=== PATIENT | female | born 1960 | race American Indian/Alaskan Native ===

== ENCOUNTER 2017-02-12 10:32 | Outpatient (CLI) | payer MEDICARE ==
--- NOTE | 2017-02-12 11:29 | XRay Report ---
ROUTINE CHEST, TWO VIEWS: HISTORY: Acute upper respiratory infection. The trachea, heart, mediastinal contour, lung millre and bony thorax are unremarkable. IMPRESSION: Unremarkable chest x-ray.
[2017-02-12 11:41] LABS: Eosinophils % (Auto) 2.2 % (0.0-4.3); Hematocrit 40.5 % (30.3-42.9); Hemoglobin 13.5 gm/dl (10.1-14.3); Mean Corpuscular HGB Conc 33 % (30-34); Mean Corpuscular Hemoglobin 31 pg (28-32); Mean Corpuscular Volume 93 fl (79-97); Red Blood Count 4.35 M/mm3 (3.65-5.03); Red Cell Distribution Width 14.5 % (13.2-15.2); White Blood Count 9.4 K/mm3 (4.5-11.0)
[2017-02-12 11:55] LABS: Albumin 3.9 g/dL (3.9-5); Albumin/Globulin Ratio 0.9 %; Alkaline Phosphatase 80 units/L (35-129); Anion Gap 19 mmol/L; BUN/Creatinine Ratio 16; Blood Urea Nitrogen 14 mg/dL (7-17); Calcium 9.2 mg/dL (8.4-10.2); Carbon Dioxide 24 mmol/L (22-30); Chloride 99.8 mmol/L (98-107); Glucose 97 mg/dL (65-100); Potassium 4.8 mmol/L (3.6-5.0); Sodium 138 mmol/L (137-145); Total Protein 8.2 g/dL (6.3-8.2)
[2017-02-12 12:05] LABS: Bilirubin,Direct < 0.2 mg/dL (0-0.2); Bilirubin,Indirect 0.3 mg/dL
[2017-02-12 12:06] LABS: Alanine Aminotransferase 40 units/L (7-56)
[2017-02-12 12:24] LABS: Platelet Count 185 K/mm3 (140-440)
== END 2017-02-12 10:33 | disposition home or self-care (01) ==
LOC: XRAY 10:32
PROVIDERS: ATTEND Nurse Practitioner
DX: J06.9 Acute upper respiratory infection, unspecified (principal); B18.2 Chronic viral hepatitis C; R11.11 Vomiting without nausea; I11.0 Hypertensive heart disease with heart failure; I50.9 Heart failure, unspecified; M06.9 Rheumatoid arthritis, unspecified
CPT/HCPCS: 36415; 71020; 80053; 80074; 85025

== ENCOUNTER 2017-03-14 03:19 | Emergency (ER) | payer MEDICARE ==
[2017-03-14 05:51] LABS: Basophils # (Auto) 0.1 K/mm3 (0.0-0.1); Basophils % (Auto) 0.7 % (0.0-1.8); Eosinophils # (Auto) 0.2 K/mm3 (0.0-0.4); Eosinophils % (Auto) 2.4 % (0.0-4.3); Hemoglobin 12.5 gm/dl (10.1-14.3); Lymphocytes # (Auto) 2.5 K/mm3 (1.2-5.4); Lymphocytes % (Auto) 29.4 % (13.4-35.0); Mean Corpuscular HGB Conc 33 % (30-34); Mean Corpuscular Hemoglobin 31 pg (28-32); Mean Corpuscular Volume 93 fl (79-97); Monocytes # (Auto) 0.7 K/mm3 (0.0-0.8); Monocytes % (Auto) 8.2 % (0.0-7.3); Platelet Count 218 K/mm3 (140-440); Red Cell Distribution Width 14.5 % (13.2-15.2)
[2017-03-14 06:16] LABS: Alanine Aminotransferase 38 units/L (7-56); Albumin 4.2 g/dL (3.9-5); BUN/Creatinine Ratio 20; Blood Urea Nitrogen 16 mg/dL (7-17); Calcium 9.1 mg/dL (8.4-10.2); Hemolysis Index 6
[2017-03-14 07:19] VITALS: BP 124/79
--- NOTE | 2017-03-14 10:42 | Emergency Department Report ---
ED Extremity Problem HPI - General Chief complaint: Extremity Problem,Nontraumatic Stated complaint: RIGHT ARM PAIN Time Seen by Provider: 03/14/17 10:20 Source: patient Mode of arrival: Ambulatory Limitations: No Limitations - History of Present Illness Initial comments: Patient is a 56-year-old [place] female with no significant past medical history presenting with 1 week of right arm pain. Patient states that she is so much pain it is difficult to hold things in the arm feels weak and heavy pain initially started as a pins and needles sensation and now has a burning pain. Patient did see her primary care physician who started on gabapentin which has not relieved any of her symptoms. Patient denies any trauma swelling neck pain or any other neurological symptoms. She rates the pain as 10 out of 10 severity MD Complaint: extremity pain Location: right, upper extremity Radiation: none Quality: burning, stabbing, aching, sharp, constant Consistency: constant Improves with: nothing (patient states she is tried heat, ice, and massage with no relief) Worsens with: nothing Associated Symptoms: myalgias. denies: chest pain, shortness of breath, fever, arthralgias - Related Data Home Medications Medication Instructions Recorded Confirmed Last Taken Amlodipine Bes/Olmesartan Med 1 tab PO DAILY 05/12/15 08/30/16 06/27/15 [Chet 5-20 mg] Gabapentin [Neurontin] 900 mg PO QDAY 05/12/15 08/30/16 06/27/15 Previous Rx's Medication Instructions Recorded Last Taken Type HYDROcodone/APAP 5-325 [[place] 1 each PO Q4H PRN #30 tablet 09/03/16 Unknown Rx 5-325 mg TAB] oxyCODONE /ACETAMINOPHEN [Percocet 1 tab PO Q6HR PRN #10 tablet 03/14/17 Unknown Rx 5/325] Allergies Allergy/AdvReac Type Severity Reaction Status Date / Time glatiramer acetate Allergy Seizure Verified 06/10/13 17:29 [From Copaxone] Penicillins Allergy Rash Verified 01/01/13 17:34 meperidine HCl [From Demerol] AdvReac Rash Verified 01/06/13 09:37 prochlorperazine edisylate AdvReac Unknown Verified 01/01/13 17:34 [From Compazine] ED Review of Systems ROS: Stated complaint: RIGHT ARM PAIN Other details as noted in HPI Comment: All other systems reviewed and negative ED Past Medical Hx - Past Medical History Previous Medical History?: Yes Hx Hypertension: Yes (2013) Hx CVA: Yes (TIA) Hx Heart Attack/AMI: Yes Hx Congestive Heart Failure: No Hx Diabetes: No Hx Liver Disease: Yes (Hep C) Hx Renal Disease: Yes Hx Sickle Cell Disease: Yes (TRAIT) Hx Headaches / Migraines: Yes (MIGRAINES) Hx Asthma: No Hx COPD: No Additional medical history: HCV. Colon CA - Surgical History Past Surgical History?: Yes Hx Cholecystectomy: Yes Hx Appendectomy: Yes Additional Surgical History: Right Nephrectomy, Hysterectomy - Social History Smoking Status: Never Smoker Substance Use Type: None - Medications Home Medications: Home Medications Medication Instructions Recorded Confirmed Last Taken Type Amlodipine Bes/Olmesartan Med 1 tab PO DAILY 05/12/15 08/30/16 06/27/15 History [Chet 5-20 mg] Gabapentin [Neurontin] 900 mg PO QDAY 05/12/15 08/30/16 06/27/15 History HYDROcodone/APAP 5-325 [[place] 1 each PO Q4H PRN #30 tablet 09/03/16 Unknown Rx 5-325 mg TAB] oxyCODONE /ACETAMINOPHEN [Percocet 1 tab PO Q6HR PRN #10 tablet 03/14/17 Unknown Rx 5/325] ED Physical Exam - General Limitations: No Limitations General appearance: alert, in no apparent distress - Head Head exam: Present: atraumatic, normocephalic - Eye Eye exam: Present: normal appearance - ENT ENT exam: Present: mucous membranes moist - Neck Neck exam: Present: normal inspection - Respiratory Respiratory exam: Present: normal lung sounds bilaterally. Absent: respiratory distress - Cardiovascular Cardiovascular Exam: Present: regular rate, normal rhythm. Absent: systolic murmur, diastolic murmur, rubs, gallop - GI/Abdominal GI/Abdominal exam: Present: soft, normal bowel sounds - Extremities Exam Extremities exam: Present: normal inspection - Back Exam Back exam: Present: normal inspection - Neurological Exam Neurological exam: Present: alert, oriented X3, CN II-XII intact, normal gait, motor sensory deficit (patient has 4 out of 5 formulation technician strength of the right hand there is no pronator drift) - Psychiatric Psychiatric exam: Present: normal affect, normal mood - Skin Skin exam: Present: warm, dry, intact, normal color. Absent: rash ED Course Vital Signs 03/14/17 03/14/17 03/14/17 04:52 07:15 07:19 Temperature 98.4 F 97.7 F Pulse Rate 79 70 Respiratory 18 Rate Blood Pressure 139/87 124/79 O2 Sat by Pulse 97 96 Oximetry 03/14/17 11:44 Temperature Pulse Rate Respiratory 18 Rate Blood Pressure O2 Sat by Pulse Oximetry ED Medical Decision Making - Lab Data Result diagrams: 03/14/17 05:35 03/14/17 05:35 - Medical Decision Making Patient is a 56-year-old female who is presenting with right upper extremity pain and formulation technician strength weakness. This event for the past week. Primary physician has referred her to neurology however she has come here for pain control. CT head does not support any stroke symptoms Critical care attestation.: If time is entered above; I have spent that time in minutes in the direct care of this critically ill patient, excluding procedure time. ED Disposition Clinical Impression: Pain syndrome, chronic Disposition: DC-01 TO HOME OR SELFCARE Is pt being admited?: No Does the pt Need Aspirin: No Condition: Stable Prescriptions: oxyCODONE /ACETAMINOPHEN [Percocet 5/325] 1 tab PO Q6HR PRN #10 tablet PRN Reason: Pain Referrals: SANDRA HOFF MD [Primary Care Provider] - 3-5 Days
[2017-03-14] MEDS ORDERED: NORCO 7.5/325 PO ONE (10:49)
[2017-03-14] MEDS ORDERED: MOTRIN PO ONE (10:49)
[2017-03-14] MEDS ORDERED: ZOFRAN ODT PO ONE (11:10)
[2017-03-14] MEDS ORDERED: PERCOCET 5/325 PO ONE (11:29)
--- NOTE | 2017-03-14 13:05 | Cat Scan Report ---
CT HEAD WITHOUT CONTRAST: HISTORY: Right upper extremity weakness. TECHNIQUE: Sequential 2.5mm CT images. COMPARISON: none. FINDINGS: Cerebral Parenchyma: Within normal limits. Cerebellum: Within normal limits. Brainstem: Within normal limits. Ventricles: Normal. Sella: Normal. Extra-axial spaces: Normal. Basal Cisterns: Normal. Intracranial Hemorrhage: None. Midline Shift: None. Calvarium: Normal. Sinuses: Normal. Mastoid Air Cells: Normal. Visualized Orbits: Normal. IMPRESSION: Cranial CT scan within normal limits.
== END 2017-03-14 13:48 | disposition home or self-care (01) ==
LOC: ED 03:19
DX: G89.4 Chronic pain syndrome (principal); M79.601 Pain in right arm; I10 Essential (primary) hypertension; I25.2 Old myocardial infarction; G43.909 Migraine, unspecified, not intractable, without status migrainosus
CPT/HCPCS: 36415; 70450; 80053; 85025; Q0162

== ENCOUNTER 2017-04-01 06:12 | Day surgery (SDC) | payer MEDICARE ==
[2017-04-01] MEDS ORDERED: NACL 0.9% 1000 ML 1,000 ML IV SCH (08:00)
--- NOTE | 2017-04-01 09:21 | Short Stay Summary ---
Short Stay Documentation Date of service: 04/01/17 Narrative H&P: 56 year old with attentuated polyposis syndrome, history colon cancer 2005, 25 polyps in 2015, 19 polyps in 2016 plus one large colon polyp and one small anal canal polyp which were not able to be excised colonoscopically and for which she was advised to have surgery, however she elected not to pursue surgery and became lost to follow up. She was recently hospitalized for GI bleeding. She presents today for colonoscopy. - History Principal diagnosis: personal hx colon cancer, personal hx colon polyps, recent bleeding H&P: obtained from office - Allergies and Medications Current Medications: Allergies glatiramer acetate [From Copaxone] Allergy (Verified 06/10/13 17:29) Seizure Penicillins Allergy (Verified 01/01/13 17:34) Rash meperidine HCl [From Demerol] Adverse Reaction (Verified 01/06/13 09:37) Rash prochlorperazine edisylate [From Compazine] Adverse Reaction (Verified 01/01/13 17:34) Unknown Home Medications Medication Instructions Recorded Confirmed Last Taken Type Amlodipine Bes/Olmesartan Med 1 tab PO DAILY 05/12/15 04/01/17 04/01/17 History [Chet 5-20 mg] Gabapentin [Neurontin] 900 mg PO QDAY 05/12/15 04/01/17 03/31/17 History HYDROcodone/APAP 5-325 [[place] 1 each PO Q4H PRN #30 tablet 09/03/16 04/01/17 Unknown Rx 5-325 mg TAB] oxyCODONE /ACETAMINOPHEN [Percocet 1 tab PO Q6HR PRN #10 tablet 03/14/17 Unknown Rx 5/325] Active Medications Sodium Chloride (Nacl 0.9% 1000 Ml) 1,000 mls @ 50 mls/hr IV DIRECT MARIANNE Last Admin: 04/01/17 08:21 Dose: 50 mls/hr - Physical exam General appearance: no acute distress HEENT: PERRLA, EOMI Lungs: Clear to auscultation Heart: Regular rate, Normal S1, Normal S2 Gastrointestinal: normal, obese - Hospital course Hospital course: Unsuccessful attempt to perform colonoscopy. Prep was inadequate. - Disposition Condition at discharge: Good Disposition: DC-01 TO HOME OR SELFCARE - Discharge Diagnoses (1) Personal history of colonic polyps Status: Chronic (2) Personal history of colon cancer Status: Chronic (3) History of GI bleed Status: Resolved Short Stay Discharge Plan Activity: other (no driving today) Diet: other (resume usual diet) Additional Instructions: 1. Patient has acknowledged awareness that she had polyps not excised in 2016 and understanding the significance, that they pose serious risk that she may now have colon cancer or that she may develop colon cancer, as well as likelihood of additional new polyps in view of her past history of having had colon cancer and having had multiple polyps at pervious colonoscopies. She has been strongly advised today to reschedule colonoscopy as soon as possible and that she will require an enhanced prep in order to have a good and accurate examination. She is to call our office to schedule nupur. 2. She has been advised again that her first-degree relatives (siblings and children of both sexes) should be informed that colon cancer and colon polyps run in the family, and that they should begin their colon screening when they reach an age which is 10 years younger than she was when she had her first colon polyp and/or colon cancer, whichever is lower. Follow up with: SANDRA HOFF MD [Primary Care Provider] - 7 Days
--- NOTE | 2017-04-01 09:24 | Anesthesia Day of Surgery ---
Anesthesia Day of Surgery - Day of Surgery Patient Examined: Yes Patient H&P Reviewed: Yes Patient is NPO: Yes
--- NOTE | 2017-04-01 09:24 | Anesthesia Consultation ---
Anesthesia Consult and Med Hx Date of service: 04/01/17 - Airway Anesthetic Teeth Evaluation: Good ROM Head & Neck: Adequate Mental/Hyoid Distance: Adequate Mallampati Class: Class I Intubation Access Assessment: Good - Pre-Operative Health Status ASA Pre-Surgery Classification: ASA2 Proposed Anesthetic Plan: General - Pulmonary Hx Asthma: No COPD: No Hx Pneumonia: No - Cardiovascular System Hx Hypertension: Yes Hx Heart Attack/AMI: Yes Hx Heart Murmur: Yes - Endocrine Hx Renal Disease: Yes (R kidney removed ) Hx End Stage Renal Disease: No Hx Liver Disease: Yes (Hep C) - Hematic Hx Sickle Cell Disease: Yes (TRAIT) - Other Systems Hx Cancer: Yes - Additional Comments Anesthesia Medical History Comments: Pt denies hx of heart attack, murmur that are listed. NAC.
[2017-04-01] MEDS ORDERED: DIPRIVAN 10 MG/ML IV ONE ×2 (09:30)
--- NOTE | 2017-04-01 09:57 | Operative Report ---
Operative Report Operative Report: Date of procedure: 04/01/2017 Preprocedure diagnosis: Personal history colon cancer 2006, personal history numerous polyps 2014 and 2016 not all excised and for which surgery had been recommended, more recent GI bleeding Post procedure diagnosis: Inadequate prep to perform colonoscopy Procedure name(s): Intended colonoscopy, reduced to fiberoptic sigmoidoscopy Surgeon: Masood Mcdonald MD Anesthesia: Monitored anesthesia care EBL: None Procedure: The indications, techniques, potential complications and alternatives , had been discussed in full detail prior to the date of the exam, and once again on the day of the exam. Questions were encouraged and answered, and consent was thereby obtained. The patient was placed in the left lateral decubitus position, and was medicated by anesthesia services. See the anesthesia records for details. The anal sphincter was digitally dilated. The tip of a [employer] adult video colonoscope was inserted through the anal sphincter and into the rectal vault. A small amount of formed stool was noted. The instrument was advanced proximally into the sigmoid colon where significant amounts of additional retained formed stool were present, obscuring significant portions of mucosa and partially occluding the lumen. The prep was deemed to be inadequate and therefore the procedure was terminated. The abbreviated procedure was well- tolerated. Postprocedure she was monitored in the recovery area of the GI lab to ensure stability prior to her release. See the outpatient record for details regarding instructions to patient, medications and plans for follow-up. She was made aware that she is at risk to either have colon cancer now or develop colon cancer in the future by virtue of her past history of colon cancer and past history of numerous colon polyps, including polyps noted in 2016 for which surgical removal had been recommended. She has been very strongly advised to contact our office to schedule repeat colonoscopy for which she will require an enhanced prep. She has expressed a good understanding. Final diagnosis: Personal history of colon cancer and colon polyps, including polyps not excised at last colonoscopy 2016, more recent rectal bleeding, retained stool at this exam precluding performance of colonoscopy. Masood Mcdonald M.D. Dictated 04/01/2017 at 9:53 AM
[2017-04-01 10:09] VITALS: BP 127/78
== END 2017-04-01 06:13 | disposition home or self-care (01) ==
LOC: GIO 06:12
PROVIDERS: ATTEND Internal Medicine Gastroenterology
DX: Z08 Encounter for follow-up examination after completed treatment for malignant neoplasm (principal); I10 Essential (primary) hypertension; I25.2 Old myocardial infarction; B19.20 Unspecified viral hepatitis C without hepatic coma; F32.9 Major depressive disorder, single episode, unspecified; F41.9 Anxiety disorder, unspecified; Z98.890 Other specified postprocedural states; Z90.710 Acquired absence of both cervix and uterus; Z86.010 Personal history of colon polyps; Z85.038 Personal history of other malignant neoplasm of large intestine; Z90.5 Acquired absence of kidney; Z88.0 Allergy status to penicillin; Z88.8 Allergy status to other drugs, medicaments and biological substances
CPT/HCPCS: 45378; J2704; J7030

== ENCOUNTER 2017-04-29 07:35 | Day surgery (SDC) | payer MEDICARE ==
[2017-04-29] MEDS ORDERED: NACL 0.9% 1000 ML 1,000 ML IV SCH (08:00)
[2017-04-29] MEDS ORDERED: WATER FOR IRRIG STERILE IR ONE (08:57)
[2017-04-29] MEDS ORDERED: WATER FOR IRRIG STERILE ONE (08:57)
--- NOTE | 2017-04-29 09:01 | Anesthesia Consultation ---
Anesthesia Consult and Med Hx Date of service: 04/29/17 - Airway Anesthetic Teeth Evaluation: Good (some missing ) ROM Head & Neck: Adequate Mental/Hyoid Distance: Adequate Mallampati Class: Class I Intubation Access Assessment: Good - Pulmonary Exam CTA: Yes - Cardiac Exam Cardiac Exam: RRR - Pre-Operative Health Status ASA Pre-Surgery Classification: ASA3 Proposed Anesthetic Plan: MAC - Cardiovascular System Hx Hypertension: Yes Hx Heart Murmur: Yes - Endocrine Hx Liver Disease: Yes (Hep C) - Hematic Hx Sickle Cell Disease: Yes (TRAIT) - Other Systems Hx Cancer: Yes (Colon s/p resection )
--- NOTE | 2017-04-29 09:02 | Anesthesia Day of Surgery ---
Anesthesia Day of Surgery - Day of Surgery Patient Examined: Yes Patient H&P Reviewed: Yes Patient is NPO: Yes
[2017-04-29] MEDS ORDERED: DIPRIVAN 10 MG/ML IV ONE ×4 (09:29→10:23)
--- NOTE | 2017-04-29 09:43 | Short Stay Summary ---
Short Stay Documentation Date of service: 04/29/17 Narrative H&P: 57 year presents presents for colonoscopy for high risk colon screening in view of a history of colon cancer and a history of attenuated polyposis syndrome. She had colon cancer 2005, 25 polyps 2014, 19 polyps 2015 including a 2-3 cm lesion not able to be removed colonoscopically and an anal verge polyp left in place. She did not follow up to be referred to surgery, did not follow up for planned MRI to evaluate abnormal LFT and did not follow up for repeat colonoscopy, all of which had been recommended. She was recently hospitalized [facility] for hematochezia. - History Principal diagnosis: colon polyps, hx colon cancer, recent hematochezia H&P: obtained from office Past Medical History: CAD (hx [place]), cancer (colon), hepatitis (B), hypertension, other (colon polyps, anxiety/depression) Past Surgical History: cholecystectomy, , hysterectomy, bowel surgery ( colon cancer resection), Other (hemorrhoidectomy) - Allergies and Medications Current Medications: Allergies glatiramer acetate [From Copaxone] Allergy (Verified 06/10/13 17:29) Seizure Penicillins Allergy (Verified 01/01/13 17:34) Rash meperidine HCl [From Demerol] Adverse Reaction (Verified 01/06/13 09:37) Rash prochlorperazine edisylate [From Compazine] Adverse Reaction (Verified 01/01/13 17:34) Unknown Home Medications Medication Instructions Recorded Confirmed Last Taken Type Amlodipine Bes/Olmesartan Med 1 tab PO DAILY 05/12/15 04/01/17 04/28/17 History [Chet 5-20 mg] Gabapentin [Neurontin] 900 mg PO QDAY 05/12/15 04/01/17 04/26/17 History HYDROcodone/APAP 5-325 [[place] 1 each PO Q4H PRN #30 tablet 09/03/16 04/01/17 Unknown Rx 5-325 mg TAB] oxyCODONE /ACETAMINOPHEN [Percocet 1 tab PO Q6HR PRN #10 tablet 03/14/17 Unknown Rx 5/325 mg] Active Medications Sodium Chloride (Nacl 0.9% 1000 Ml) 1,000 mls @ 50 mls/hr IV DIRECT MARIANNE Last Admin: 04/29/17 08:22 Dose: 50 mls/hr - Physical exam General appearance: no acute distress Lungs: Clear to auscultation Heart: Regular rate, Normal S1, Normal S2 Gastrointestinal: normal - Hospital course Hospital course: Uneventful colonoscopy. See report. - Discharge Diagnoses (1) Colon polyps Status: Acute (2) Personal history of colonic polyps Status: Acute (3) Personal history of colon cancer Status: Chronic (4) Personal history of noncompliance with medical treatment Status: Acute Comment: Did not follow up for surgical referral to excise polyps not able to be removed at 2016 colonoscopy nor for repeat colonoscopy in 1 year (2017) (5) Internal hemorrhoids Status: Acute Short Stay Discharge Plan Activity: other (no driving today) Diet: other (may resume usual diet) Additional Instructions: 1. Call for your pathology results in 2 weeks if you have not heard from us by then. 2. You have polyps of significant size still in your colon that require surgical removal. Please follow up with me to arrange referral. 3. You have numerous tiny (1-2 mm) probable early polyps. Given your history of colon cancer, and multiple polyps at every colonoscopy, removal of your colon should be strongly recommended. I recommend that you at least speak with a surgical technologist to see what options you may have. 4. Your first-degree relatives (siblings and children) need to know that polyps run in the family and that they should begin their colon screening at age 33 ( assuming you had your colon cancer at age 45) rather than waiting until age 50. Follow up with: SANDRA HOFF MD [Primary Care Provider] - 7 Days
[2017-04-29] MEDS ORDERED: GI SPOT IJ ONE (10:23)
--- NOTE | 2017-04-29 10:57 | Operative Report ---
Operative Report Operative Report: Date of procedure: 04/29/2017 Preprocedure diagnosis: Personal history of colon cancer, personal history of colon polyps, known polyps left in place 2015 however patient elected not to pursue the recommended surgical follow-up, recent hematochezia Post procedure diagnosis: Multiple polyps, surgical anastomosis, internal hemorrhoids Procedure name(s): Colonoscopy, multiple snare polypectomy, biopsy, mucosal injection for ink tattoo Surgeon: Masood Mcdonald MD Anesthesia: Monitored anesthesia care EBL: 1-2 mL Procedure: The indications, techniques, potential complications and alternatives , had been discussed in full detail prior to the date of the exam, and once again on the day of the exam. Questions were encouraged and answered, and consent was thereby obtained. The patient was placed in the left lateral decubitus position, and was medicated by anesthesia services. See the anesthesia records for details. The anal sphincter was digitally dilated. Polypoid lesions were detected. The tip of a [employer] adult video colonoscope was inserted through the anal sphincter and into the rectal vault. It was then advanced proximally under continuous visualization of the lumen through the end to side colocolic anastomosis in the sigmoid, and successfully to the cecum. The prep was adequate to detect polyps of 5 mm or greater, after lavage and suctioning. The appendiceal orifice appeared normal. A 5 mm sessile polyp was excised from the cecum with a cold snare and retrieved (container #1). Bleeding was minimal. The remainder the cecum appeared normal. The ileocecal valve appeared normal and cannulation of the valve revealed normal appearing terminal ileum. From the cecum, the instrument was slowly withdrawn with careful circumferential examination of the colonic mucosa. A 1 cm sessile polyp was excised from the proximal ascending colon with a cold snare and retrieved ( container #2). Bleeding was minimal. A 4 mm sessile polyp was excised from the distal ascending colon with a cold snare and retrieved (container #3). Bleeding was minimal. Three sessile polyps ranging from 4-7 mm were excised from the hepatic flexure with a cold snare and retrieved (container #4). Bleeding was minimal. A 1 cm sessile polyp was excised from the proximal transverse colon with a cold snare and retrieved (container #5). Bleeding was minimal. An old ink tattoo was noted in the mid transverse colon. A 5 mm sessile polyp was excised from the splenic flexure with a cold snare and retrieved (container #6). Bleeding was minimal. A 5 mm polyp was excised from the proximal descending colon with a cold snare and retrieved (container #7). Bleeding was minimal. A polypoid mass measuring 3 cm with adjacent ink tattoo, corresponding to the polyp noted in 2016 which had been left in place and for which surgical excision had been recommended, was noted. See photograph. Biopsies were obtained (container number a) and additional ink tattoo was applied for guidance at anticipated surgery. The location was just above the anastomosis. Nearly at the orifice of the anastomosis a 1.2 cm pedunculated polyp was identified and this was photographed but left in place in anticipation of surgery. The end to side anastomosis was again noted. No additional polyps were seen in the remainder of the sigmoid. 2 semi-sessile polyps were noted in the rectum at retroflexion at or just adjacent to the squamocolumnar junction in proximity to the internal hemorrhoids and these were therefore left in place , again with anticipation of recommendation for surgical excision. The instrument was fully withdrawn. The procedure was very well tolerated. Postprocedure she was monitored in the recovery area of the GI lab to ensure stability prior to her release. See the outpatient record for details regarding instructions to patient, medications and plans for follow-up. The recommendations include the followin. Call for your pathology results in 2 weeks if you have not heard from us by then. 2. You have polyps of significant size still in your colon that require surgical removal. Please follow up with me to arrange referral. 3. You have numerous tiny (1-2 mm) probable early polyps. Given your history of colon cancer, and multiple polyps at every colonoscopy, removal of your colon should be strongly recommended. I recommend that you at least speak with a certified surgical tech/first assistant to see what options you may have. 4. Your first-degree relatives (siblings and children) need to know that polyps run in the family and that they should begin their colon screening at age 33 ( assuming you had your colon cancer at age 45) rather than waiting until age 50. Final diagnosis: 1. Polypoid mass, 3 cm, distal remaining sigmoid colon above the colocolic anastomosis with adjacent ink tattoo, biopsied but not excised. 2. Pedunculated polyp, 1.2 cm, in the orifice of the anastomosis, left in place in view of proximity to polypoid mass which will require surgical excision. 3. 2 polyps, semi-sessile, 8-10 mm, distal rectum, left in place in anticipation of surgical excision. 4. Sessile polyp, 5 mm, cecum, excised. 5. Sessile polyp, 1 cm, proximal ascending colon, excised. 6. Sessile polyp, 4 mm, distal ascending colon, excised. 7. Sessile polyps 3, 4-7 mm, hepatic flexure, excised. 8. Sessile polyp, 1 cm, proximal transverse colon, excised. 9. Sessile polyp, 5 mm, splenic flexure, excised. 10. Sessile polyp, 5 mm, proximal descending colon, excised. 11. Note made of mucosal tattoos from prior examinations, including mid transverse colon and adjacent to lesion described in #1. 12. Internal hemorrhoids Masood Mcdonald M.D. Dictated 04/29/2017 at 10:58 AM
[2017-04-29 11:16] VITALS: BP 166/98
== END 2017-04-29 07:36 | disposition home or self-care (01) ==
LOC: GIO 07:35
PROVIDERS: ATTEND Internal Medicine Gastroenterology
DX: D12.2 Benign neoplasm of ascending colon (principal); D12.0 Benign neoplasm of cecum; D12.4 Benign neoplasm of descending colon; D12.3 Benign neoplasm of transverse colon; D12.5 Benign neoplasm of sigmoid colon; D57.3 Sickle-cell trait; K64.8 Other hemorrhoids; B19.20 Unspecified viral hepatitis C without hepatic coma; G62.9 Polyneuropathy, unspecified; I25.10 Atherosclerotic heart disease of native coronary artery without angina pectoris; I10 Essential (primary) hypertension; I25.2 Old myocardial infarction; F41.9 Anxiety disorder, unspecified; F32.9 Major depressive disorder, single episode, unspecified; Z86.010 Personal history of colon polyps; Z85.038 Personal history of other malignant neoplasm of large intestine; Z90.49 Acquired absence of other specified parts of digestive tract; Z88.0 Allergy status to penicillin; Z88.5 Allergy status to narcotic agent; Z98.890 Other specified postprocedural states; Z90.710 Acquired absence of both cervix and uterus
CPT/HCPCS: 45381; 45385; 88305; J2704; J7030

== ENCOUNTER 2017-09-30 23:56 | Emergency (ER) | payer MEDICARE | END 2017-10-01 00:49 | disposition left against medical advice (07) | LOC: ED 23:56 | DX: R10.9 Unspecified abdominal pain (principal); Z53.21 Procedure and treatment not carried out due to patient leaving prior to being seen by health care provider ==

== ENCOUNTER 2018-05-02 09:08 | Outpatient (CLI) | payer MEDICARE ==
[2018-05-02 10:53] LABS: Basophils # (Auto) 0.1 K/mm3 (0.0-0.1); Basophils % (Auto) 0.8 % (0.0-1.8); Eosinophils # (Auto) 0.3 K/mm3 (0.0-0.4); Hematocrit 33.1 % (30.3-42.9); Hemoglobin 10.8 gm/dl (10.1-14.3); Lymphocytes # (Auto) 1.9 K/mm3 (1.2-5.4); Lymphocytes % (Auto) 24.6 % (13.4-35.0); Mean Corpuscular HGB Conc 33 % (30-34); Mean Corpuscular Volume 94 fl (79-97); Monocytes # (Auto) 0.8 K/mm3 (0.0-0.8); Monocytes % (Auto) 10.4 % (0.0-7.3); Platelet Count 228 K/mm3 (140-440); Red Blood Count 3.53 M/mm3 (3.65-5.03); Red Cell Distribution Width 14.1 % (13.2-15.2)
[2018-05-02 11:10] LABS: Alanine Aminotransferase 33 units/L (7-56); Albumin 3.8 g/dL (3.9-5); BUN/Creatinine Ratio 15; Blood Urea Nitrogen 15 mg/dL (7-17); Calcium 8.9 mg/dL (8.4-10.2); Chol/HDL Ratio 2.75 %; HDL Cholesterol 65 mg/dL (40-59); Hemolysis Index 2; LDL Cholesterol,Direct 114 mg/dL (50-130)
== END 2018-05-02 09:09 | disposition home or self-care (01) ==
LOC: LAB 09:08
PROVIDERS: ATTEND Internal Medicine
DX: Z00.01 Encounter for general adult medical examination with abnormal findings (principal); B18.2 Chronic viral hepatitis C; R73.9 Hyperglycemia, unspecified; F34.1 Dysthymic disorder; I10 Essential (primary) hypertension; Z90.49 Acquired absence of other specified parts of digestive tract; Z90.710 Acquired absence of both cervix and uterus
CPT/HCPCS: 36415; 80053; 80061; 82306; 82607; 83036; 84443; 85025